=== PATIENT | male | born 1995 | race Caucasian/White ===

== ENCOUNTER 2022-01-13 22:13 | Emergency (ER) | payer SELFPAY ==
[~2022-01-13] VITALS: Ht 162.6 cm; Wt 136.9 kg
[2022-01-14] MEDS ORDERED: CLINDAMYCIN PHOSPHATE 600MG/4ML VIAL IM ONE (01:30)
[2022-01-14] MEDS ORDERED: CLINDAMYCIN PHOSPHATE 900MG/6ML VIAL IV SCH (02:00)
[2022-01-14] MEDS ORDERED: CLIN300C12 MT (02:12)
[2022-01-14 02:39] VITALS: BP 125/80
== END 2022-01-14 02:43 | disposition home or self-care (01) ==
LOC: ER 22:13
DX: L02.31 Cutaneous abscess of buttock (principal)
CPT/HCPCS: 96374; 99283; J3490; 96375